=== PATIENT | male | born 1945 | race Caucasian/White ===

== ENCOUNTER 2017-04-15 07:45 | Day surgery (SDC) | payer BC ==
[~2017-04-15 07:45] MED LIST: Bupivacaine 0.5% 30 ML SDV ONE; Lactated Ringers 1,000 ML IV SCH
--- NOTE | 2017-04-15 08:16 | PCM.PREANE ---
Preanesthetic Assessment - Anesthesia/Transfusion/Family Hx Anesthesia History: Prior Anesthesia Without Reaction Family History of Anesthesia Reaction: No Transfusion History: No Prior Transfusion(s) Intubation History: Unknown - Review of Systems General: No Symptoms Pulmonary: No Symptoms Cardiovascular: No Symptoms Gastrointestinal: No Symptoms Neurological: No Symptoms Other: Reports: None - Physical Assessment Height: 1.73 m Weight: 81.193 kg ASA Class: 5E Emergency Airway Class: Mallampati = 2 Dentition: Reports: Normal Dentition, [place](s) (multiple crown) Thyro-Mental Finger Breadths: 3 Mouth Opening Finger Breadths: 2 ROM/Head Extension: Full Lungs: Clear to Auscultation, Normal Respiratory Effort Cardiovascular: Regular Rate, Regular Rhythm - Allergies Allergies/Adverse Reactions: Allergies Allergy/AdvReac Type Severity Reaction Status Date / Time shellfish derived Allergy Swelling Verified 04/11/17 10:23 - Blood Blood Available: No - Anesthesia Plan Pre-Op Medication Ordered: None - Acknowledgements Anesthesia Type Planned: General Anesthesia Pt an Appropriate Candidate for the Planned Anesthesia: Yes Alternatives and Risks of Anesthesia Discussed w Pt/Guardian: Yes Pt/Guardian Understands and Agrees with Anesthesia Plan: Yes PreAnesthesia Questionnaire HEENT History: Reports: Other (See Below) Other HEENT History: wears glasses. Cardiovascular History: Reports: Hypertension Gastrointestinal History: Reports: GERD Psychiatric History: Reports: Anxiety Oncologic (Cancer) History: Reports: Other (See Below) Other Oncologic History: melanoma - Past Surgical History Head Surgeries/Procedures: Reports: None HEENT Surgical History: Reports: Tonsillectomy GI Surgical History: Reports: Colonoscopy Musculoskeletal Surgical History: Reports: Other (See Below) Other Musculoskeletal Surgeries/Procedures:: left elbow surgery Dermatological Surgical History: Reports: Skin Biopsy - SUBSTANCE USE Smoking Status *Q: Never Smoker Recreational Drug Use History: No - HOME MEDS Home Medications: Home Meds Aspirin [[place] Aspirin] 81 mg PO DAILY 04/11/17 [History] Cyanocobalamin (Vitamin B12) [Vitamin B12] 1 tab PO DAILY 04/11/17 [History] Lisinopril/Hydrochlorothiazide [Lisinopril-Hctz 20-12.5 mg Tab] 1 tab PO DAILY 04/11/17 [History] [place]-3S/DHA/Epa/Fish Oil [Fish Oil Dr 1,000 mg Softgel] 1 tab PO DAILY [History] Ubidecarenone [Coq-10] 200 mg PO DAILY 04/11/17 [History] - CURRENT (IN HOUSE) MEDS Current Meds: Current Medications Lactated Ringer's (Ringers, Lactated) 1,000 mls @ 125 mls/hr IV ASDIRECTED JOSUE Discontinued Medications Bupivacaine HCl (Marcaine 0.5%) Confirm Administered Dose 30 ml .ROUTE .STK-MED ONE Stop: 04/15/17 07:20
[2017-04-15] MEDS ORDERED: Ketorolac 30 MG/ML SDV ONE ×2 (08:58→09:00)
[2017-04-15] MEDS ORDERED: Dexamethasone 4 MG/ML 5 ML MDV ONE ×2 (08:58→09:00)
[2017-04-15] MEDS ORDERED: Ondansetron 4 MG/2 ML SDV ONE ×2 (08:58→09:00)
[2017-04-15] MEDS ORDERED: Atropine 0.4 MG/ML SDV ONE ×2 (08:58→09:00)
[2017-04-15] MEDS ORDERED: Lidocaine 2% 5 ML SDV ONE (08:58)
[2017-04-15] MEDS ORDERED: ePHEDrine 50 MG/ML SDV ONE (09:00)
[2017-04-15] MEDS ORDERED: Midazolam 1 MG/ML 2 ML SDV ONE (09:00)
[2017-04-15] MEDS ORDERED: fentaNYL 100 MCG/2 ML SDV ONE (09:00)
[2017-04-15] MEDS ORDERED: Propofol 200 MG/20 ML SDV ONE (09:01)
[2017-04-15] MEDS ORDERED: Acetaminophen/HYDROcodone 325-5 MG Tab PO PRN (10:26)
[2017-04-15] MEDS ORDERED: Morphine 10 MG/ML Syringe IVPUSH PRN (10:26)
--- NOTE | 2017-04-15 10:28 | PCM.OPNOTE ---
- General Post-Op/Procedure Note Date of Surgery/Procedure: 04/15/17 Operative Procedure(s): Wide excision, superficial spreading melanoma, left posterior arm with layered 9 cm closure Pre Op Diagnosis: Superficial spreading melanoma, left posterior arm Post-Op Diagnosis: Same Anesthesia Technique: General LMA (ASA II) Primary Surgeon: Ibrahima Tinajero Fluid Replacement, Intraop: 900 EBL in mLs: 20 Condition: Good Free Text/Narrative:: Dictation [id number] CPT CODE [id number]
[2017-04-15] MEDS ORDERED: Lactated Ringers 1,000 ML IV SCH (10:30)
--- NOTE | 2017-04-15 10:55 | PCM.POSTAN ---
POST ANESTHESIA ASSESSMENT - MENTAL STATUS Mental Status: Alert, Oriented - RESPIRATORY Respiratory Status: Respiratory Rate WNL, Airway Patent, O2 Saturation Stable - CARDIOVASCULAR CV Status: Pulse Rate WNL, Blood Pressure Stable - GASTROINTESTINAL GI Status: No Symptoms - PAIN Pain Score: 5 - POST OP HYDRATION Hydration Status: Adequate & Stable - OBSERVATIONS Free Text/Narrative:: no anesthesia problems
--- NOTE | 2017-04-17 08:54 | OR ---
SURGEON: Ibrahima Tinajero M.D. DATE OF PROCEDURE: 04/15/2017 OPERATION PERFORMED: Wide local excision of superficial spreading melanoma with layered 9 cm closure. ANESTHESIA: General LMA. ASA CLASSIFICATION: II. PREOPERATIVE DIAGNOSIS: Superficial spreading melanoma of the left posterior arm. POSTOPERATIVE DIAGNOSIS: Superficial spreading melanoma of the left posterior arm. ESTIMATED BLOOD LOSS: 20 mL. FLUID: Intraoperative fluid resuscitation 900 mL of crystalloid. DESCRIPTION OF PROCEDURE: The patient was taken to the operating room and placed on the operating table in the supine position. Time-out was called for appropriate identification of patient and procedure. Following satisfactory attainment of general anesthesia with placement of an LMA, the patient was rolled up on his right side. The left upper extremity was prepped with DuraPrep solution. Sterile drapes, including stockinette, were applied. The skin incision was marked out with a 1.5 cm border anteriorly and posteriorly. Elliptical skin incision was then carried out. Skin incision was made circumferentially, and then, using electrocautery, full-thickness skin excision was accomplished. The superior margin of the surgical ellipse was marked with an 0 silk suture. The wound was inspected for hemostasis, and bleeding sites were electrocoagulated. The skin anteriorly and posteriorly was undermined, and two layered 9-cm closure was carried out. The subcutaneous tissue was reapproximated with interrupted 3-0 nylon. The skin edges were reapproximated with interrupted 3-0 nylon. The wound was then dressed with a sterile Tegaderm pad. Sponge, needle, and instrument counts were all correct. The patient tolerated the procedure well. Following emergence from anesthesia and extubation, he was taken to recovery room in stable condition. JAIME NINO /[id number]
--- NOTE | 2017-04-25 11:54 | OR ---
SURGEON: Ibrahima Tinajero M.D. DATE OF PROCEDURE: 04/15/2017 ADDENDUM: The size of the lesion removed was 6 mm x 7 mm. JAIME / TRUNG /[id number]
== END 2017-04-15 11:45 | disposition home or self-care (01) ==
LOC: MW.SDS 07:45
PROVIDERS: ATTEND Surgery
DX: C43.62 Malignant melanoma of left upper limb, including shoulder (principal); I10 Essential (primary) hypertension; F17.290 Nicotine dependence, other tobacco product, uncomplicated; K21.9 Gastro-esophageal reflux disease without esophagitis; F41.9 Anxiety disorder, unspecified; Z79.82 Long term (current) use of aspirin; Z79.899 Other long term (current) drug therapy; Z90.89 Acquired absence of other organs; Z98.890 Other specified postprocedural states; Z80.1 Family history of malignant neoplasm of trachea, bronchus and lung; Z91.013 Allergy to seafood
CPT/HCPCS: 11601; 12034; 88305; J0461; J1100; J1885; J2250; J2405; J3010; J7120; 00400; J2704

== ENCOUNTER 2020-10-12 07:15 | Day surgery (SDC) | payer MEDICARE, BC ==
[~2020-10-12 07:15] MED LIST changes: -Bupivacaine 0.5% 30 ML SDV ONE; +Glycopyrrolate 0.2 MG/ML SDV ONE; +Phenylephrine 1% 10 MG/ML SDV ONE; +Propofol 200 MG/20 ML SDV ONE
--- NOTE | 2020-10-12 07:22 | PCM.PREANE ---
Preanesthetic Assessment - Anesthesia/Transfusion/Family Hx Anesthesia History: Prior Anesthesia Without Reaction Transfusion History: No Prior Transfusion(s) Intubation History: Unknown - Review of Systems General: No Symptoms Pulmonary: No Symptoms Cardiovascular: No Symptoms Gastrointestinal: No Symptoms Neurological: No Symptoms Other: Reports: None - Physical Assessment Height: 5 ft 8 in Weight: 180 lb Mental Status: Alert & Oriented x3 Dentition: Reports: Normal Dentition ROM/Head Extension: Full Lungs: Clear to Auscultation, Normal Respiratory Effort Cardiovascular: Regular Rate, Regular Rhythm - Allergies Allergies/Adverse Reactions: Allergies Allergy/AdvReac Type Severity Reaction Status Date / Time animal dander Allergy Swollen Verified 10/06/20 08:02 Eyes shellfish derived Allergy Swelling Verified 10/06/20 08:02 in throat, stomach pain PreAnesthesia Questionnaire HEENT History: Reports: Other (See Below) Other HEENT History: wears glasses. Cardiovascular History: Reports: Arrhythmia, Hypertension Other Cardiovascular History: paroxysmal SVT Respiratory History: Reports: None Gastrointestinal History: Reports: GERD Genitourinary History: Reports: None Musculoskeletal History: Reports: Fracture Other Musculoskeletal History: hx fx elbow, foot and pelvis Neurological History: Reports: None Psychiatric History: Reports: Anxiety Endocrine/Metabolic History: Reports: None Hematologic History: Reports: None Immunologic History: Reports: None Oncologic (Cancer) History: Reports: Other (See Below) Other Oncologic History: melanoma Dermatologic History: Reports: None - Past Surgical History Head Surgeries/Procedures: Reports: None HEENT Surgical History: Reports: Tonsillectomy Cardiovascular Surgical History: Reports: None Respiratory Surgical History: Reports: None GI Surgical History: Reports: Colonoscopy, EGD Male Surgical History: Reports: None Endocrine Surgical History: Reports: None Neurological Surgical History: Reports: None Musculoskeletal Surgical History: Reports: Other (See Below) Other Musculoskeletal Surgeries/Procedures:: left elbow surgery Oncologic Surgical History: Reports: None Dermatological Surgical History: Reports: Skin Biopsy - SUBSTANCE USE Tobacco Use Status *Q: Never Tobacco User - HOME MEDS Home Medications: Home Meds Aspirin [[place] Aspirin EC] 81 mg PO DAILY 04/11/17 [History] Cyanocobalamin (Vitamin B12) [Vitamin B12] 1 tab PO DAILY 04/11/17 [History] Lisinopril/Hydrochlorothiazide [Lisinopril-Hctz 20-12.5 mg Tab] 1 tab PO DAILY 04/11/17 [History] [place]-3S/DHA/Epa/Fish Oil [Fish Oil Dr 1,000 mg Softgel] 1 tab PO DAILY 04/11/17 [History] Ubidecarenone [Coq-10] 200 mg PO DAILY 04/11/17 [History] - CURRENT (IN HOUSE) MEDS Current Meds: Current Medications Lactated Ringer's (Ringers, Lactated) 1,000 mls @ 125 mls/hr IV ASDIRECTED JOSUE Discontinued Medications Glycopyrrolate (Glycopyrrolate 0.2 Mg/Ml Sdv) Confirm Administered Dose 0.2 mg .ROUTE .STK-MED ONE Stop: 10/12/20 07:06 Lidocaine HCl (Lidocaine 1% 5 Ml Sdv) Confirm Administered Dose 5 ml .ROUTE .STK-MED ONE Stop: 10/12/20 07:06 Phenylephrine HCl (Phenylephrine 1% 10 Mg/Ml Sdv) Confirm Administered Dose 10 mg .ROUTE .STK-MED ONE Stop: 10/12/20 07:06 Propofol (Propofol 200 Mg/20 Ml Sdv) Confirm Administered Dose 600 mg .ROUTE .STK-MED ONE Stop: 10/12/20 07:07
--- NOTE | 2020-10-12 09:17 | PCM.OPNOTE ---
- General Post-Op/Procedure Note Date of Surgery/Procedure: 10/12/20 Operative Procedure(s): EGD with biopsies and polypectomy. Colonscopy Findings: Gastritis Gastric polyp Hiatal hernia irregular GE junction Normal colonoscopy dictation number [id number] Pre Op Diagnosis: Screening colonoscopy. History of food impaction. GERD Post-Op Diagnosis: Gastritis. Gastric polyp. Hiatal hernia. irregular GE junction. Normal colonoscopy Primary Surgeon: Robbie Clinton Pathology: Gastric polyp and biopsies Complications: None Condition: Good
--- NOTE | 2020-10-12 09:24 | PCM48HPAN ---
Post Anesthesia Note - EVALUATION WITHIN 48HRS OF ANESTHETIC Vital Signs in Normal Range: Yes Patient Participated in Evaluation: Yes Respiratory Function Stable: Yes Airway Patent: Yes Cardiovascular Function Stable: Yes Hydration Status Stable: Yes Pain Control Satisfactory: Yes Nausea and Vomiting Control Satisfactory: Yes Vital Signs: Last Vital Signs Temp 97.2 F 10/12/20 09:18 Pulse 71 10/12/20 09:18 Resp 13 10/12/20 09:18 BP 113/70 10/12/20 09:18 Pulse Ox 97 10/12/20 09:18
--- NOTE | 2020-10-12 09:24 | PCM.POSTAN ---
POST ANESTHESIA ASSESSMENT - MENTAL STATUS Mental Status: Alert, Oriented - VITAL SIGNS Vital Signs: Last Vital Signs Temp 97.2 F 10/12/20 09:18 Pulse 71 10/12/20 09:18 Resp 13 10/12/20 09:18 BP 113/70 10/12/20 09:18 Pulse Ox 97 10/12/20 09:18 - RESPIRATORY Respiratory Status: Respiratory Rate WNL, Airway Patent, O2 Saturation Stable - CARDIOVASCULAR CV Status: Pulse Rate WNL, Blood Pressure Stable - GASTROINTESTINAL GI Status: No Symptoms - POST OP HYDRATION Hydration Status: Adequate & Stable
--- NOTE | 2020-10-12 12:30 | OR ---
SURGEON: DOMINIC GURROLA MD DATE OF PROCEDURE: 10/12/2020 PREOPERATIVE DIAGNOSES: 1. Screening colonoscopy. 2. History of food impaction. 3. Gastroesophageal reflux disease. POSTOPERATIVE DIAGNOSES: 1. Gastritis. 2. Gastric polyp. 3. Hiatal hernia. 4. Irregular gastroesophageal junction. 5. Normal colonoscopy. ENDOSCOPIST: Dominic Gurrola MD ANESTHESIA: General anesthesia. EXTENT OF THE EGD: To at least the second part of duodenum. EXTENT OF THE COLONOSCOPY: To the cecum. BOWEL PREP: Excellent. LIMITATIONS: None. REASON FOR PROCEDURE: The patient is a pleasant 75-year-old gentleman whose last colonoscopy was 10 years ago, per the patient report this was normal. He denies any blood in stool. Denies any family history of colon cancer. The patient also says he has GERD, but this is well controlled with Prilosec. 30 years ago, he had EGD because of food impaction, but denies any swallowing issues really for the last 15 to 20 years. He says he is just make sure he chews his food properly. Over the last couple of years, he says he does feel more bloating after eating. PROCEDURE IN DETAIL: Physical examination was performed. The major risks and benefits associated with the procedure were explained to the patient in detail. The patient verbalized understanding and was in agreement with the same. The patient was then connected to the appropriate monitoring devices, and IV was started. EKG, pulse oximetry, blood pressure, and capnography were monitored throughout the entire procedure. Oxygen and sedation were provided by the anesthesiologist. The patient was placed in left lateral decubitus position. Sedation was began. After adequate sedation was achieved, the upper endoscope was advanced under direct visualization ultimately into the upper GI tract. The mucosa of the esophagus, GE junction, stomach pylorus and at least the second part of duodenum were inspected. Duodenum appeared normal. Scope was brought to the stomach. The patient did have some gastritis mainly in the antrum of the stomach with some areas of some past bleeding or potentially even being on ulcer. These are small. They did do biopsies of the pylorus, antrum, and check for H pylori. Also had the biopsies of these more irritated areas and antrum. Did do both retro and antegrade views of the stomach. The patient did have a small polyp in the body of the stomach and this was removed. The scope was brought to the GE junction. GE junction was approximately 35 cm from incisor. He did have small to medium size hiatal hernia about 3-4 cm in size. GE junction was slightly irregular and looked to be somewhat scarred. Did do multiple biopsies of the GE junction. Scope was brought back into the stomach. Stomach was deinsufflated and the biopsy sites had good hemostasis. Scope was brought up to the GE junction. Again, good hemostasis of the biopsy site. Scope was brought up through the esophagus. Esophagus appeared normal. Scope was removed and this part of procedure was terminated. Gloves and scopes were changed. Now rectal exam was performed. No rectal masses or polyps were felt. Well- lubricated Olympus colonoscope was inserted into the rectum and advanced under direct visualization to the level of the cecum. Cecum was identified by both visual and anatomic landmarks. Photographs were taken of the cecal cap. The scope was then slowly withdrawn in a circular fashion looking at the color, texture, anatomy, and integrity of mucosa from the cecum to the anal canal. The patient had excellent bowel prep with some very minimal suction irrigation. No lesions or polyps were seen. Scope was retroflexed in the rectum. Scope was completely removed and the procedure was terminated. ENDOSCOPIC DIAGNOSES: 1. Gastritis. 2. Gastric polyp. 3. Hiatal hernia. 4. Irregular gastroesophageal junction. 5. Normal colonoscopy. RECOMMENDATION: Colonoscopy should be in 10 years or sooner if he develops signs and symptoms such as change in bowel habits or blood in the stool. He should follow up with me in clinic to go over his EGD, we may entertain a if he still has gastritis. Also discussed go over the pathology of the polyp and GE junction. NEIL / TRUNG /[id number]
== END 2020-10-12 10:10 | disposition home or self-care (01) ==
LOC: MW.SDS 07:15
PROVIDERS: ATTEND Surgery
DX: Z12.11 Encounter for screening for malignant neoplasm of colon (principal); K31.7 Polyp of stomach and duodenum; K44.9 Diaphragmatic hernia without obstruction or gangrene; K22.10 Ulcer of esophagus without bleeding; K22.8 Other specified diseases of esophagus; K29.70 Gastritis, unspecified, without bleeding; F17.290 Nicotine dependence, other tobacco product, uncomplicated; K21.00 Gastro-esophageal reflux disease with esophagitis, without bleeding; I10 Essential (primary) hypertension; Z91.013 Allergy to seafood; Z91.048 Other nonmedicinal substance allergy status; Z79.82 Long term (current) use of aspirin; Z79.899 Other long term (current) drug therapy
CPT/HCPCS: 43239; 88305; 88342; G0121; J2704; J3490; J7120; 00813; 99100; J2370

== ENCOUNTER 2021-03-13 20:49 | Emergency (ER) | payer MEDICARE, BC ==
[2021-03-13] MEDS ORDERED: Ketorolac 15 MG/ML SDV IVPUSH ONE (21:35)
[2021-03-13] MEDS ORDERED: Dextrose 5%-Lactated Ringers 1,000 ML IV SCH (21:45)
[2021-03-13] MEDS ORDERED: Ketorolac 30 MG/ML SDV ONE (21:46)
[2021-03-13 22:04] LABS: CORONAVIRUS COVID-19 NAA POSITIVE (NEGATIVE); INFLUENZA A NAA NEGATIVE (NEGATIVE); INFLUENZA B NAA NEGATIVE (NEGATIVE)
[2021-03-13] MEDS ORDERED: Ketorolac 30 MG/ML SDV IVPUSH ONE (22:09)
--- NOTE | 2021-03-13 22:29 | EDM.PDOC ---
ED HPI GENERAL MEDICAL PROBLEM - General Chief Complaint: Headache Stated Complaint: WEAKNESS, HEADACHE Time Seen by Provider: 03/13/21 20:58 - History of Present Illness INITIAL COMMENTS - FREE TEXT/NARRATIVE: CHIEF COMPLAINT(S): "I think I have got some Covid symptoms." HISTORY OF PRESENT ILLNESS: This is a 76-year-old man with a past medical history of hypertension who comes to the emergency department with a chief complaint of "I think I have got some Covid symptoms." The patient states that his neighbors had Covid approximately 1 month ago and today he was discussing his symptoms with them and they told him to come to the emergency department because he was having similar symptoms to them with Covid. He states that for the last 6 days he has been experiencing weakness and decreased appetite. He denies any chest pain, shortness of breath, cough, runny nose, congestion. He denies any loss of smell or taste. He is not vaccinated. Patient states he has been experiencing a bifrontal headache not associated with any blurry vision, double vision, loss of vision. He rates his pain as 4-5 out of 10 and describes it as achy. There is no radiation of this pain. There was no aggravating or relieving factors. He denies any trouble walking, speaking or swallowing. REVIEW OF SYSTEMS: Constitutional: Positive for weakness denies fever, chills. Eyes: Denies eye pain Ears, Nose, Mouth, & Throat: Denies earache Cardiovascular: Denies chest pain Respiratory: Denies shortness of breath Gastrointestinal: Denies Nausea, vomiting, diarrhea, hematochezia. Genitourinary: Denies hematuria Skin:Denies a rash MSK: Denies joint pain Neurological: Positive for headache. Denies blurred vision, numbness, tingling, weakness Psychiatric: Denies depression PAST MEDICAL HISTORY: As per history of present illness and as reviewed below otherwise noncontributory. SURGICAL HISTORY: As per history of present illness and as reviewed below otherwise noncontributory. SOCIAL HISTORY: As per history of present illness and as reviewed below otherwise noncontributory. FAMILY HISTORY: As per history of present illness and as reviewed below otherwise noncontributory. EXAMINATION OF ORGAN SYSTEMS/BODY AREAS: Constitutional: Blood pressure was 116/58, heart rate 93, respiratory rate 18 with an oxygen saturation 94% on room air. Temperature 36.5 General: Well-appearing elderly man who is in no acute distress Psychiatric: Appropriate mood and affect. Eyes: No scleral icterus or conjunctival erythema ENMT: Moist mucous membranes. No pharyngeal erythema Cardiovascular: Regular, rate, and rhythm. No gallops, murmurs, or rubs. Bilateral upper extremity pulses symmetric and intact. No peripheral edema. No JVD. Respiratory: Lungs clear to auscultation bilaterally. No wheezes, rales, or rhonchi. Gastrointestinal: Soft, non-tender, non-distended. Normoactive bowel sounds Genitourinary: No suprapubic tenderness Musculoskeletal: Normal range of motion. Skin: No lesions or abrasions. Neurological: AOx4. CN grossly intact. Strength 5/5 in bilateral upper and lower extremity. Sensation is intact bilaterally in upper and lower extremity. Gait appears normal. Finger to nose, heel to christian, rapid alternating movements intact. MEDICAL DECISION MAKING AND COURSE IN THE ED WITH INTERPRETATION/REVIEW OF DIAGNOSTIC STUDIES: This is a 76-year-old man with a past medical history of hypertension who comes to the emergency department with concerns for COVID-19 who is borderline hypoxic on room air but does not appear to be tachypneic. At this time given the patient is not experiencing any shortness of breath, cough or chest pain I do not believe any chest x-ray or EKG is indicated. We will obtain a Covid influenza and RSV swab. In addition we will provide the patient 1 L of D5 LR given that the patient has not been able to have a appropriate appetite for the last week. He was amenable to this plan DDx: COVID-19, influenza, viral syndrome Laboratory: Covid positive. Influenza negative After labs I did reevaluate the patient. The patient continued to remain stable. I did discuss the results with the patient. I did discuss Regeneron therapy and the patient was interested. We will fax over the patient's information. He was given strict return precautions. The patient was amenable discharge and had no further questions DISPOSITION: The patient was discharged home in stable condition. The patient will follow up with primary care physician after isolation. CONDITION: Fair PROCEDURES: None FINAL IMPRESSION(S)/DIAGNOSES: 1. Acute COVID-19 infection Fidencio Griffin M.D. headache Pain Score (Numeric/FACES): 5 - Related Data Allergies Allergy/AdvReac Type Severity Reaction Status Date / Time animal dander Allergy Swollen Verified 03/13/21 21:02 Eyes shellfish derived Allergy Swelling Verified 03/13/21 21:02 in throat, stomach pain Home Meds: Home Meds Aspirin [Hughson Aspirin EC] 81 mg PO DAILY 04/11/17 [History] Cyanocobalamin (Vitamin B12) [Vitamin B12] 1 tab PO DAILY 04/11/17 [History] Lisinopril/Hydrochlorothiazide [Lisinopril-Hctz 20-12.5 mg Tab] 1 tab PO DAILY 04/11/17 [History] Prewitt-3S/DHA/Epa/Fish Oil [Fish Oil Dr 1,000 mg Softgel] 1 tab PO DAILY 04/11/17 [History] Ubidecarenone [Coq-10] 200 mg PO DAILY 04/11/17 [History] Past Medical History HEENT History: Reports: Other (See Below) Other HEENT History: wears glasses. Cardiovascular History: Reports: Arrhythmia, Hypertension Other Cardiovascular History: paroxysmal SVT Respiratory History: Reports: None Gastrointestinal History: Reports: GERD Genitourinary History: Reports: None Musculoskeletal History: Reports: Fracture Other Musculoskeletal History: hx fx elbow, foot and pelvis Neurological History: Reports: None Psychiatric History: Reports: Anxiety Endocrine/Metabolic History: Reports: None Insulin Pump Model and Corporate Associate Attorney: N/A Hematologic History: Reports: None Immunologic History: Reports: None Oncologic (Cancer) History: Reports: Other (See Below) Other Oncologic History: melanoma Dermatologic History: Reports: None - Infectious Disease History Infectious Disease History: Reports: None - Past Surgical History Head Surgeries/Procedures: Reports: None HEENT Surgical History: Reports: Tonsillectomy Cardiovascular Surgical History: Reports: None Respiratory Surgical History: Reports: None GI Surgical History: Reports: Colonoscopy, EGD Male Surgical History: Reports: None Endocrine Surgical History: Reports: None Neurological Surgical History: Reports: None Musculoskeletal Surgical History: Reports: Other (See Below) Other Musculoskeletal Surgeries/Procedures:: left elbow surgery Oncologic Surgical History: Reports: None Dermatological Surgical History: Reports: Skin Biopsy Social & Family History - Caffeine Use Caffeine Use: Reports: None - Recreational Drug Use Recreational Drug Use: No ED ROS GENERAL - Review of Systems Review Of Systems: See Below ED EXAM, GENERAL - Physical Exam Exam: See Below Course - Vital Signs Last Recorded V/S: Last Vital Signs Temp 36.5 C 03/13/21 21:02 Pulse 77 03/13/21 22:37 Resp 16 03/13/21 22:37 BP 111/48 L 03/13/21 22:37 Pulse Ox 95 03/13/21 22:37 - Orders/Labs/Meds Labs: Laboratory Tests 03/13/21 Range/Units 21:05 Influenza Type A RNA NEGATIVE (NEGATIVE) Influenza Type B RNA NEGATIVE (NEGATIVE) SARS-CoV-2 RNA (DAMARIS) POSITIVE H (NEGATIVE) Meds: Medications Discontinued Medications Generic Name Dose Route Start Last Admin Trade Name Freq PRN Reason Stop Dose Admin Dextrose/Lactated Ringer's 1,000 mls @ 999 mls/hr 03/13/21 21:45 03/13/21 21:56 Dextrose 5%-Lactated Ringers IV 999 mls/hr ASDIRECTED JOSUE Administration Ketorolac Tromethamine 15 mg 03/13/21 21:35 03/13/21 22:10 Ketorolac 15 Mg/Ml Sdv IVPUSH 03/13/21 21:36 Not Given ONETIME ONE Ketorolac Tromethamine Confirm 03/13/21 21:46 03/13/21 21:55 Ketorolac 30 Mg/Ml Sdv Administered 03/13/21 21:47 Not Given Dose 30 mg .ROUTE .STK-MED ONE Ketorolac Tromethamine 15 mg 03/13/21 22:09 03/13/21 22:11 Ketorolac 30 Mg/Ml Sdv IVPUSH 03/13/21 22:10 15 mg ONETIME ONE Administration Departure - Departure Time of Disposition: 22:28 Disposition: Home, Self-Care 01 Condition: Fair Clinical Impression: COVID-19 - Discharge Information *PRESCRIPTION DRUG MONITORING PROGRAM REVIEWED*: No *COPY OF PRESCRIPTION DRUG MONITORING REPORT IN PATIENT GRIS: No Instructions: 10 Things You Can Do to Manage Your COVID-19 Symptoms at Home - [facility] (10/21/2020), Symptoms of COVID-19 - [facility] (05/30/2020), COVID-19: Quarantine vs. Isolation - [facility] (03/24/2020), Dehydration, Elderly, [id number], COVID-19: What to Do If You Are Sick- [facility] (06/22/2020) Forms: ED Department Discharge Additional Instructions: You should take acetaminophen 500-1000 mg every 6 hours as needed for fever and muscle aches. Please drink plenty of fluids and get plenty of rest over the next several days. We would recommend that you get a pulse oximeter from the pharmacy to keep an eye on your oxygen level. If your oxygen level drops below 91%, you should return to the ED for evaluation. You should return to the ER sooner if you start having any symptoms of shortness of breath or any other new or concerning symptoms. 1. Your COVID-19 screening is positive. That means you do have the coronavirus and you are considered contagious. Your vital signs and oxygen saturation are well enough that you were able to monitor your symptoms at home. Continue to monitor for trouble breathing, new confusion or inability to arouse, bluish lips or face or any of the other symptoms we discussed -if this occurs please return to the emergency room. 2. Please self quarantine over the next 10 days. Inform any persons that you have been in contact with since you started becoming symptomatic that you have tested positive; they should be made aware and take the appropriate steps as needed. 3. May alternate Tylenol and ibuprofen as needed for pain and fever management. 4. The [facility] will be calling you and following up with you. The [place] COVID 19 Hotline phone number , They are open Saturday - ay 7am - 7pm. Follow up with your primary care provider for re-evaluation and re-testing after the 10 day quarantine and discuss when you should be seen. [facility] [address] [place] [address] [id number] [id number] The patient is informed of any results of their evaluation and diagnostic workup and all questions are answered. They are given discharge instructions and return precautions. The patient is stable for discharge. The patient states they understand and agree with the plan and that they will return if their symptoms get worse or if they have any new concerns. The following information is given to patients seen in the emergency department who are being discharged to home. This information is to outline your options for follow-up care. We provide all patients seen in our emergency department with a follow-up referral. The need for follow-up, as well as the timing and circumstances, are variable depending upon the specifics of your emergency department visit. If you don't have a primary care physician on staff, we will provide you with a referral. We always advise you to contact your personal physician following an emergency department visit to inform them of the circumstance of the visit and for follow-up with them and/or the need for any referrals to a consulting specialist. The emergency department will also refer you to a specialist when appropriate. This referral assures that you have the opportunity for follow-up care with a specialist. All of these measure are taken in an effort to provide you with optimal care, which includes your follow-up. Under all circumstances we always encourage you to contact your private physician who remains a resource for coordinating your care. When calling for follow-up care, please make the office aware that this follow-up is from your recent emergency room visit. If for any reason you are refused follow-up, please contact the [facility] Emergency Dep artment at and asked to speak to the emergency department charge nurse. Sepsis Event Note (ED) - Evaluation Sepsis Screening Result: No Definite Risk - Focused Exam Vital Signs: Vital Signs Temp Pulse Resp BP Pulse Ox 03/13/21 22:37 77 16 111/48 L 95 03/13/21 21:02 36.5 C 93 18 116/58 L 94 L
== END 2021-03-13 22:54 | disposition home or self-care (01) ==
LOC: MW.ED 20:49
DX: U07.1 COVID-19 (principal); I10 Essential (primary) hypertension; Z91.013 Allergy to seafood; Z91.09 Other allergy status, other than to drugs and biological substances; Z79.82 Long term (current) use of aspirin
CPT/HCPCS: 0240U; 96374; 99284; J1885; J7121

== ENCOUNTER 2021-10-23 10:44 | Emergency (ER) | payer OTHER, MEDICARE, BC ==
[2021-10-23 11:27] LABS: BLOOD UREA NITROGEN,BUN 29 mg/dL (7.0-18.0); CARBON DIOXIDE,CO2 26.8 mmol/L (21.0-32.0); CHLORIDE,CL 104 mmol/L (98-107); GLUCOSE RANDOM 165 mg/dL (74-106); SODIUM,NA 140 mmol/L (136-148)
[2021-10-23 11:28] LABS: ESTIMATED GFR 53 mL/min (>60)
== END 2021-10-23 13:09 | disposition home or self-care (01) ==
LOC: MW.ED 10:44
DX: S22.32XA Fracture of one rib, left side, initial encounter for closed fracture (principal); S30.0XXA Contusion of lower back and pelvis, initial encounter; S40.212A Abrasion of left shoulder, initial encounter; I10 Essential (primary) hypertension; K21.9 Gastro-esophageal reflux disease without esophagitis; Z91.013 Allergy to seafood; Z91.09 Other allergy status, other than to drugs and biological substances; Z79.82 Long term (current) use of aspirin; Z79.899 Other long term (current) drug therapy; V89.2XXA Person injured in unspecified motor-vehicle accident, traffic, initial encounter
CPT/HCPCS: 36415; 70450; 70450-26; 71045; 71045-26; 71260; 71260-26; 72125; 72125-26; 72128-26; 72131-26; 73030-26-LT; 73030-LT; 74177; 74177-26; 80053; 83735; 84484; 85025; 99284